=== PATIENT | female | born 1950 | race Caucasian/White ===

== ENCOUNTER → 2016-09-29 | Outpatient (CLI) | payer OTHER ==
[~2016-09-29] MED LIST: ALEVE220 MG PO; ASPIRIN325 MG PO; BIOTIN2500 MCG PO; CALCITONIN-SAL3.7 ML; CALCIUM 600 +1 EAC7 PO; CLINDAMYCIN HC300 MG PO; FLEXERIL 10 MG10 MG PO; FLONASE 0.05% N16 GM INH; FOSAMAX70 MG PO; HYDROCHLOROTHIA25 MG PO; IBUPROFEN PO; IBUPROFEN800 MG PO; LEVOCETIRIZINE D5 MG PO; LEVOTHYROXINE75 MCG PO; LISINOPRIL20 MG PO; METFORMIN HCL500 M1 PO; MULTI-DAY VITA1 EACH PO; NASONEX17 GM; NEURONTIN 300300 MG PO; OMEPRAZOLE20 M1 PO; PERCOCET 10-321 EACH PO; PHENERGAN 25 MG25 M1 PO; PRAVASTATIN SOD20 MG PO; PREMARIN1.25 MG PO; TYLENOL 500 MG500 MG PO; VIT D PO; VITAMIN C500 M1 PO
[2016-09-29 10:16] LABS: HEMOGLOBIN 12.9 gm/dl (12.3-15.3); RED BLOOD COUNT 4.27 M/UL (4.00-5.10); WHITE BLOOD COUNT 6.4 K/UL (4.5-11.0)
[2016-09-29 10:33] LABS: BUN/CREATININE RATIO 30 (0-10)
== END ==
LOC: OPSV2 09:23
PROVIDERS: Podiatrist Foot & Ankle Surgery
DX: Z01.812 Encounter for preprocedural laboratory examination (principal); A52.16 Charcot's arthropathy (tabetic); Z88.2 Allergy status to sulfonamides
CPT/HCPCS: 36415; 80048; 85027; 93005

== ENCOUNTER 2016-10-06 08:41 | Day surgery (SDC) | payer OTHER ==
[~2016-10-06] VITALS: Ht 167.6 cm; Wt 85.3 kg
[2016-10-06] MEDS ORDERED: HYDROCHLOROTHIA25 MG PO (09:18)
[2016-10-06] MEDS ORDERED: LISINOPRIL20 MG PO (09:18)
[2016-10-06] MEDS ORDERED: OMEPRAZOLE20 M1 PO (09:19)
[2016-10-06] MEDS ORDERED: NEURONTIN 300300 MG PO (09:19)
[2016-10-06] MEDS ORDERED: PREMARIN1.25 MG PO (09:20)
[2016-10-06] MEDS ORDERED: METFORMIN HCL500 M1 PO (09:21)
[2016-10-06] MEDS ORDERED: PRAVASTATIN SOD20 MG PO (09:21)
[2016-10-06] MEDS ORDERED: LEVOCETIRIZINE D5 MG PO (09:22)
[2016-10-06] MEDS ORDERED: ASPIRIN325 MG PO (09:22)
[2016-10-06] MEDS ORDERED: NASONEX17 GM (09:23)
[2016-10-06] MEDS ORDERED: BIOTIN2500 MCG PO (09:24)
[2016-10-06] MEDS ORDERED: CALCIUM 600 +1 EAC7 PO (09:25)
[2016-10-06] MEDS ORDERED: MULTI-DAY VITA1 EACH PO (09:25)
[2016-10-06] MEDS ORDERED: VIT D PO (09:29)
[2016-10-06] MEDS ORDERED: CALCITONIN-SAL3.7 ML (09:31)
[2016-10-06] MEDS ORDERED: TYLENOL 500 MG500 MG PO (09:35)
[2016-10-06] MEDS ORDERED: IBUPROFEN PO (09:37)
[2016-10-06] MEDS ORDERED: LEVOTHYROXINE75 MCG PO (09:38)
[2016-10-06] MEDS ORDERED: ALEVE220 MG PO (09:38)
[2016-10-07 11:25] LABS: HEMOGLOBIN 10.8 gm/dl (12.3-15.3); RED BLOOD COUNT 3.66 M/UL (4.00-5.10); WHITE BLOOD COUNT 9.2 K/UL (4.5-11.0)
[2016-10-07 11:56] LABS: BUN/CREATININE RATIO 21 (0-10)
[2016-10-08] MEDS ORDERED: FOSAMAX70 MG PO (09:26)
[2016-10-08] MEDS ORDERED: VITAMIN C500 M1 PO (13:50)
[2016-10-08] MEDS ORDERED: PREMARIN1.25 MG PO (13:56)
[2016-10-08] MEDS ORDERED: FLONASE 0.05% N16 GM INH (13:58)
[2016-10-08] MEDS ORDERED: PHENERGAN 25 MG25 M1 PO (14:05)
[2016-10-08] MEDS ORDERED: PERCOCET 10-321 EACH PO (14:06)
[2016-10-08] MEDS ORDERED: FLEXERIL 10 MG10 MG PO (14:07)
[2016-10-08] MEDS ORDERED: IBUPROFEN800 MG PO (14:08)
[2016-10-08] MEDS ORDERED: CLINDAMYCIN HC300 MG PO (14:09)
== END 2016-10-08 16:47 | disposition home or self-care (01) ==
LOC: OR 08:41 → M/S 08:41 → OR 12:30 → M/S 15:32 → OR 10-08 16:47
PROVIDERS: Emergency Medicine; Podiatrist Foot & Ankle Surgery
PROC: 0SGM0JZ Fusion of Right Metatarsal-Phalangeal Joint with Synthetic Substitute, Open Approach (ICD-10-PCS; principal; 2016-10-06 12:30)
PROC: 0LSN0ZZ Reposition Right Lower Leg Tendon, Open Approach (ICD-10-PCS; 2016-10-06 12:30)
DX: M62.471 Contracture of muscle, right ankle and foot (principal); M14.671 Charcot's joint, right ankle and foot; M19.071 Primary osteoarthritis, right ankle and foot; L60.8 Other nail disorders; E11.40 Type 2 diabetes mellitus with diabetic neuropathy, unspecified; I10 Essential (primary) hypertension; E78.5 Hyperlipidemia, unspecified; E03.9 Hypothyroidism, unspecified; E55.9 Vitamin D deficiency, unspecified; M72.2 Plantar fascial fibromatosis; K21.9 Gastro-esophageal reflux disease without esophagitis; Z87.442 Personal history of urinary calculi; Z90.710 Acquired absence of both cervix and uterus; Z90.49 Acquired absence of other specified parts of digestive tract; Z88.2 Allergy status to sulfonamides; Z79.899 Other long term (current) drug therapy
CPT/HCPCS: 36415; 73630; 76000; 80048; 82550; 82553; 82962; 84484; 85027; C1713; J1200; J1885; J2250; J2405; J2550; J2795; J3010; J3370; J7030; J7070; J7120

== ENCOUNTER → 2017-01-05 | Outpatient (CLI) | payer OTHER | LOC: KOH-I 01-03 10:00 | DX: M14.671 Charcot's joint, right ankle and foot (principal); Z98.890 Other specified postprocedural states | CPT/HCPCS: 73700 ==

== ENCOUNTER → 2020-07-24 | Outpatient (CLI) | payer OTHER ==
[~2020-07-24] MED LIST changes: +ALENDRONATE SOD10 MG PO; +ASPIR-LOW81 MG PO; +ASPIR-TRIN325 MG PO; -ASPIRIN325 MG PO; +FARXIGA10 MG PO; +JANUVIA100 MG PO; +NORCO 7.5-3251 EACH PO; +TRULICITY0.75 MG/0. SQ; +VITAMIN C 500500 MG PO; +VITAMIN D31250 MCG PO
== END ==
LOC: KOH-I 11:00
DX: M14.671 Charcot's joint, right ankle and foot (principal); Z98.1 Arthrodesis status
CPT/HCPCS: 73630

== ENCOUNTER → 2020-10-06 | Outpatient (CLI) | payer OTHER | LOC: KOH-I 10:40 | DX: M14.671 Charcot's joint, right ankle and foot (principal); Z98.890 Other specified postprocedural states | CPT/HCPCS: 73630 ==

== ENCOUNTER → 2020-12-30 | Outpatient (CLI) | payer OTHER | LOC: KOH-I 09:39 | DX: S92.201 Fracture of unspecified tarsal bone(s) of right foot (principal); X58.XXXD Exposure to other specified factors, subsequent encounter; Z98.1 Arthrodesis status; M19.071 Primary osteoarthritis, right ankle and foot | CPT/HCPCS: 73630 ==

== ENCOUNTER → 2021-03-31 | Outpatient (CLI) | payer OTHER | LOC: KOH-I 10:31 | DX: S92.811A Other fracture of right foot, initial encounter for closed fracture (principal) | CPT/HCPCS: 73630 ==

== ENCOUNTER → 2021-07-14 | Outpatient (CLI) | payer OTHER | LOC: KOH-I 10:57 | DX: M79.671 Pain in right foot (principal) | CPT/HCPCS: 73630 ==

== ENCOUNTER → 2021-11-10 | Outpatient (CLI) | payer OTHER | LOC: KOH-I 11:18 | DX: M79.671 Pain in right foot (principal); M14.671 Charcot's joint, right ankle and foot | CPT/HCPCS: 73630 ==

== ENCOUNTER → 2022-03-02 | Outpatient (CLI) | payer OTHER | LOC: KOH-I 10:31 | DX: M79.671 Pain in right foot (principal); A52.16 Charcot's arthropathy (tabetic) | CPT/HCPCS: 73630 ==